=== PATIENT | female | born 1980 | race African-American/Black ===

== ENCOUNTER 2023-01-31 17:12 | Emergency (ER) | payer SELFPAY ==
[~2023-01-31] VITALS: Ht 167.6 cm; Wt 55.0 kg
[2023-01-31] MEDS ORDERED: LIDOCAINE 5% PATCH TOP SCH (19:00)
[2023-01-31] MEDS ORDERED: ACETAMINOPHEN 325MG TABLET PO ONE (19:00)
[2023-01-31 19:14] VITALS: BP 146/87
[2023-01-31] MEDS ORDERED: IBUP-2029 MT (20:44)
[2023-01-31] MEDS ORDERED: BACL-141 MT (20:44)
== END 2023-01-31 21:28 | disposition home or self-care (01) ==
LOC: ER 18:06
DX: S13.4XXA Sprain of ligaments of cervical spine, initial encounter (principal); M79.602 Pain in left arm; V49.59XA Passenger injured in collision with other motor vehicles in traffic accident, initial encounter; Y93.89 Activity, other specified; Y92.89 Other specified places as the place of occurrence of the external cause; Y99.8 Other external cause status; E11.9 Type 2 diabetes mellitus without complications; I10 Essential (primary) hypertension; F20.9 Schizophrenia, unspecified; Z88.0 Allergy status to penicillin
CPT/HCPCS: 73030; 73080; 73090; 73130; 81025; 99284